=== PATIENT | female | born 1995 | race Caucasian/White ===

== ENCOUNTER 2017-05-28 15:58 | Emergency (ER) | payer BC ==
[2017-05-28 16:24] VITALS: BP 131/71; PULSE 77; RESP 18; TEMP 98.4; O2SAT 99
[2017-05-28] MEDS ORDERED: ALBUTEROL INH PREPACK MDI TAKEHOME ONE (16:27)
--- NOTE | 2017-05-28 16:42 | EDPHY ---
H & P Stated Complaint: COUGH AND CONGESTION FOR 5 DAYS Time Seen by Provider: 05/28/17 16:20 HPI/ROS: Chief Complaint: Cough HPI: 21-year-old woman with 5 days of dry, nonproductive cough. She has had some mild congestion. Little bit of scratchy throat. No fevers or chills. Under for christie productive green sputum but now the cough is dry. She is having some tightness in her chest only with a cough. Pain is not pleuritic. No substernal chest pain. No nausea or vomiting. ROS: 10 point Review of Systems is negative except as noted in the HPI. PMH: Denies Social History: No smoking, no alcohol, occasional marijuana Family History: non-contributory Physical Exam: Gen: Awake, Alert, No Distress HEENT: Nose: no rhinorrhea Eyes: PERRLA, EOMI Mouth: Moist mucosa Neck: Supple, no JVD Chest: nontender, mild diffuse expiratory wheeze with forced expiration. No focal rales or rhonchi. Heart: S1, S2 normal, no murmur Abd: Soft, non-tender, no guarding Back: no CVA tenderness, no midline tenderness Ext: no edema, non-tender Skin: no rash Neuro: CN II-XII intact, Sensation grossly intact, Strength 5/5 in bilateral upper and lower extremities - Personal History LMP (Females 10-55): 1-7 Days Ago - Medical/Surgical History Other PMH: DENIES - Social History Smoking Status: Never smoked Constitutional: Initial Vital Signs Temperature (C) 36.9 C 05/28/17 16:21 Heart Rate 77 05/28/17 16:21 Respiratory Rate 18 05/28/17 16:21 Blood Pressure 131/71 H 05/28/17 16:21 O2 Sat (%) 99 05/28/17 16:21 O2 Delivery Mode Room Air Allergies/Adverse Reactions: No Known Allergies Allergy (Unverified 05/28/17 16:19) Home Medications: Medication Instructions Recorded NK [No Known Home Meds] 05/28/17 Medical Decision Making ED Course/Re-evaluation: Patient is improved after 2 puffs with an MDI with spacer. She has no focal rales or rhonchi. No findings suggestive of a pneumonia. Nonproductive cough. She has no fever. She will continue with the albuterol as needed. I will refer for outpatient follow-up. She will return for any worsening of symptoms. Departure - Departure Disposition: Home, Routine, Self-Care Clinical Impression: Bronchitis Condition: Good Instructions: Acute Bronchitis (ED) Additional Instructions: You may use the albuterol inhaler with a spacer, 2 puffs every 2-4 hours as needed for cough or wheeze. It is fine to use [id number] cough and cold medicines. Follow up with a primary care physician in 3-4 days if symptoms are not improving. Return to the emergency department for increasing cough, fevers or chills, difficulty breathing, or any other concerns. Referrals: Karli Rowan MD [Medical Doctor] - As per Instructions
== END 2017-05-28 16:57 | disposition home or self-care (01) ==
LOC: CED 15:58
DX: J40 Bronchitis, not specified as acute or chronic (principal)